=== PATIENT | female | born 1955 | race Caucasian/White ===

== ENCOUNTER → 2016-04-02 | Outpatient (CLI) | payer OTHER ==
--- NOTE | 2016-04-02 11:27 | MA ---
Screening Digital Mammogram Clinical Indications: Routine screening. Technique: Standard cephalocaudal and mediolateral oblique projections are obtained. This examinati on is processed by the [employer] computer aided detection system. Comparison: March 08, 2015; March 07, 2014; and studies dating back to September 08, 2007. Breast density: B; There are scattered areas of fibroglandular density. Findings: CAD was reviewed. No suspicious findings are identified. There are no new masses, new clus ters of microcalcifications, or significant axillary lymphadenopathy. Impression: Negative mammogram. BI-RADS 1. Recommendation: Routine screening is recommended in one year. [facility] will send a result letter to the patient. Negative mammography should not preclude additional workup of a clinically suspicious finding. The patient's information is entered into a reminder system with a target due date for her next mammo gram.
== END ==
LOC: BMCIMAGING 10:45
DX: Z12.31 Encounter for screening mammogram for malignant neoplasm of breast (principal)
CPT/HCPCS: G0202

== ENCOUNTER → 2017-05-04 | Outpatient (CLI) | payer OTHER | LOC: BMCIMAGING 08:56 | PROVIDERS: ATTEND Internal Medicine | DX: Z12.31 Encounter for screening mammogram for malignant neoplasm of breast (principal) ==

== ENCOUNTER → 2017-07-14 | Outpatient (CLI) | payer OTHER | LOC: FIMAGING 08:30 | PROVIDERS: ATTEND Physician Assistant | DX: M17.12 Unilateral primary osteoarthritis, left knee (principal) ==

== ENCOUNTER 2017-12-14 22:35 | Inpatient (IN) | payer OTHER ==
[2017-12-14] MEDS ORDERED: NS 1,000 ML IV ONE (22:41)
[2017-12-14] MEDS ORDERED: HYOSCYAMINE SULFATE 0.125 MG TAB PO ONE (22:41)
[2017-12-14] MEDS ORDERED: LIDOCAINE 2% VISCOUS 15 ML UDCUP PO ONE (22:41)
[2017-12-14] MEDS ORDERED: MAG HYDROX/AL HYDROX/SIMETH 30 ML UDCUP PO ONE (22:41)
--- NOTE | 2017-12-14 22:43 | EDPHY ---
H & P Time Seen by Provider: 12/14/17 22:41 HPI/ROS: HPI CHIEF COMPLAINT: Abdominal pain HISTORY OF PRESENT ILLNESS: This is a 62-year-old female she presents emergency room from private residence by EMS for abdominal pain. Patient reports that she has crampy diffuse abdominal pain for the past 8 hr. And most focally tender in the mid abdomen. Nausea present but no vomiting. Denies any diarrhea. Denies chest pain or shortness of breath. States that every few months she gets like this. She has been having abdominal pain for the past 8 hr. Denies fever. Past Medical History: Significant past medical history for chronic abdominal pain, anxiety, GERD, depression, previous SBO Past Surgical History: Cholecystectomy, ex lap, previous SBO, lysis of adhesions Social History: Denies drugs alcohol tobacco. Family History: Noncontributory. ROS REVIEW OF SYSTEMS: 10 Systems were reviewed and negative with the exception of the elements mentioned in the history of present illness. Exam Constitutional triage nursing summary reviewed, vital signs reviewed, awake/ alert. Vital signs stable. Nontoxic. Eyes normal conjunctivae and sclera, EOMI, PERRLA. HENT normal inspection, atraumatic, moist mucus membranes, no epistaxis, neck supple/ no meningismus, no raccoon eyes. Respiratory clear to auscultation bilaterally, normal breath sounds, no respiratory distress, no wheezing. Cardiovascular rate normal, regular rhythm, no murmur, no edema, distal pulses normal. Gastrointestinal soft, non-tender, no rebound, no guarding, normal bowel sounds, no distension, no pulsatile mass. Genitourinary no CVA tenderness. Musculoskeletal no midline vertebral tenderness, full range of motion, no calf swelling, no tenderness of extremities, no meningismus, good pulses, neurovascularly intact. Skin pink, warm, & dry, no rash, skin atraumatic. Neurologic awake, alert and oriented x 3, AAOx3, moves all 4 extremities equally, motor intact, sensory intact, CN II-XII intact, normal cerebellar, normal vision, normal speech. Psychiatric normal mood/affect. Heme/Lymph/Immune no lymphadenopathy. Differential diagnosis includes but is not limited to and in no particular order : Bowel obstruction, appendicitis, gallbladder disease, diverticulitis, colitis , enteritis, perforated viscus, gastritis, GERD, esophagitis, urinary tract infection, pyelonephritis, kidney stones Medical Decision Making: Plan for this patient IV establishment with IV fluid bolus, KUB, abdominal lab work, GI cocktail to see if this improves her mid abdomen epigastric pain. Rule out SBO as history of SBO. Re-evaluation: KUB reviewed. Does show an abnormal gait air his bowel pattern with air-fluid levels in the right-sided abdomen. Given this will proceed with CT scan abdomen pelvis with IV contrast. CT scan abdomen pelvis with IV contrast called to me by Dr. Helton, shows small bowel obstruction. 2356: Will call general surgery. 1211: Will place NG tube. I spoke with Dr. Montes, who woule like Dr. Villagran to see the patient. Spoke with Dr. Villagran who will see the patient, but would like patient admitted to Hospalist Service. 1220AM: Spoke with Dr. Canales, Agrees to admit. Source: Patient, EMS Constitutional: Initial Vital Signs Temperature (C) 36.8 C 12/14/17 22:35 Heart Rate 65 12/14/17 22:35 Respiratory Rate 20 12/14/17 22:35 Blood Pressure 172/77 H 12/14/17 22:35 O2 Sat (%) 96 12/14/17 22:35 O2 Delivery Mode Nasal Cannula O2 (L/minute) 2 Allergies/Adverse Reactions: No Known Allergies Allergy (Verified 10/13/12 16:51) Home Medications: Medication Instructions Recorded lamoTRIgine [LamICTAL 100 MG (*)] 100 mg PO DAILY 11/17/11 Albuterol [Proventil Inhaler HFA 1 - 2 puffs IH Q4 PRN 10/13/12 (*)] ESCITALOPRAM OXALATE [LEXAPRO] 20 mg PO DAILY 10/13/12 Ondansetron Odt [Zofran Odt 4 mg 4 mg PO Q4 PRN 10/13/12 (*)] Sucralfate [Carafate 1 GM (*)] 1 gm PO ACHS PRN 12/14/17 Buprenorphine HCl 8 mg SL DAILY 12/15/17 Cholecalciferol Vit D3 [Vitamin D3 1,000 units PO DAILY 12/15/17 (*)] Cyanocobalamin [Vitamin B12 (*)] 1,000 mcg PO DAILY 12/15/17 Herbals/Supplements -Info Only 1 ea PO DAILY 12/15/17 Levothyroxine [Synthroid 88 mcg 88 mcg PO DAILY06 12/15/17 (*)] [place]-3 Fatty Acids [Fish Oil 1000 1,000 mg PO DAILY 12/15/17 mg (*)] Medical Decision Making - Data Points Laboratory Results: Laboratory Results 12/15/17 05:00 12/15/17 05:00 Medications Given: Discontinued Medications Acetaminophen (Tylenol) 650 mg PO Q4HRS PRN PRN Reason: Pain, Mild/Fever, Can Take PO Stop: 06/13/18 00:18 Last Admin: 12/16/17 07:03 Dose: 650 mg Al Hydroxide/Mg Hydroxide (Maalox Susp) 30 ml PO ONCE ONE Stop: 12/14/17 22:42 Last Admin: 12/14/17 23:11 Dose: 30 ml Benzocaine (Hurricaine [place]) 1 each MM EDNOW ONE Stop: 12/15/17 00:14 Last Admin: 12/15/17 00:14 Dose: 1 each Hydromorphone HCl (Dilaudid) 1 mg IVP EDNOW ONE Stop: 12/15/17 00:04 Last Admin: 12/15/17 00:12 Dose: 1 mg Hyoscyamine Sulfate (Levsin, Hyomax-Sl) 0.25 mg PO ONCE ONE Stop: 12/14/17 22:42 Last Admin: 12/14/17 23:10 Dose: 0.25 mg Sodium Chloride (Ns) 1,000 mls @ 0 mls/hr IV EDNOW ONE; Wide Open PRN Reason: Protocol Stop: 12/14/17 22:42 Last Admin: 12/14/17 23:12 Dose: 1,000 mls Dextrose/Sodium Chloride (D5w 1/2 Ns) 1,000 mls @ 100 mls/hr IV CONT JUSTIN Stop: 06/13/18 00:29 Last Admin: 12/15/17 18:06 Dose: 1,000 mls Lidocaine (Lidocaine 2% Viscous) 15 ml PO ONCE ONE Stop: 12/14/17 22:42 Last Admin: 12/14/17 23:11 Dose: 15 ml Lorazepam (Ativan Injection) 1 mg IVP EDNOW ONE Stop: 12/15/17 00:40 Last Admin: 12/15/17 00:40 Dose: 1 mg Miscellaneous Medication (Buprenorphine Hcl [Buprenorphine Hcl]) 8 mg SL DAILY JUSTIN Stop: 06/14/18 08:59 Last Admin: 12/16/17 11:18 Dose: Not Given Point of Care Test Results: Chemistry 12/14/17 22:51 POC Troponin I 0.00 ng/mL ng/mL (0.00-0.08) Departure - Departure Disposition: [facility] Inpatient Acute Clinical Impression: SBO (small bowel obstruction) Condition: Fair
[2017-12-14 23:01] LABS: PLATELET COUNT 251 10^3/uL (150-400)
[2017-12-14] MEDS ORDERED: IOPAMIDOL (ISOVUE-300) 100 ML BTL ONE (23:04)
[2017-12-14 23:25] LABS: INR 0.93 (0.83-1.16); PROTIME(PATIENT) 12.7 SEC (12.0-15.0)
[2017-12-15] MEDS ORDERED: HYDROmorphONE/DILAUDID 2 MG/ML INJ IVP ONE (00:03)
[2017-12-15] MEDS ORDERED: BENZOCAINE UNIT DOSE SPRAY HURRICAINE MM ONE ×2 (00:07→00:13)
[2017-12-15] MEDS ORDERED: ONDANSETRON DISINTEGRATING 4 MG TAB PO PRN (00:19)
[2017-12-15] MEDS ORDERED: ACETAMINOPHEN 325 MG TAB PO PRN (00:19)
[2017-12-15] MEDS ORDERED: ONDANSETRON 4 MG/2 ML VIAL IVP PRN (00:19)
[2017-12-15] MEDS ORDERED: LORazepam 2 MG/ML INJ ONE (00:26)
[2017-12-15] MEDS ORDERED: LORazepam 2 MG/ML INJ IVP ONE (00:39)
--- NOTE | 2017-12-15 01:11 | PDGENHP ---
History and Physical - Chief Complaint Abdominal pain - History of Present Illness 62 yo F w/ hx of hypothyroid, depression, and prior SBO requiring ex-lap presents with abdominal pain. Patient developed severe abdominal pain around 2 PM today. Her last BM was this morning. She thinks she passed some gas around 2 PM but none since. She has had minimal vomiting. She had a serious SBO in 2013 requiring ex-lap at that time. Since, she had not had any serious episodes requiring hospitalization. Case discussed with ED physician Dr. Sotelo; records reviewed in EMR. History Information - Allergies/Home Medication List Allergies/Adverse Reactions: No Known Allergies Allergy (Verified 10/13/12 16:51) Home Medications: lamoTRIgine [LamICTAL 100 MG (RX)] 100 mg PO DAILY 11/17/11 [Last Taken 10/13/12 ] Albuterol [Proventil Inhaler] 1 - 2 puffs IH Q4 PRN 10/13/12 [Last Taken ] BUPRENORPHINE/NALOXONE 8mg/2mg [Suboxone] 1 tab SL DAILY 10/13/12 [Last Taken ] ESCITALOPRAM OXALATE [Lexapro] 20 mg PO DAILY 10/13/12 [Last Taken 10/13/12] Levothyroxine [Synthroid 100 mcg (RX)] 100 mcg PO DAILY06 10/13/12 [Last Taken 10/13/12] Ondansetron Odt [Zofran Odt 4 mg (RX)] 4 mg PO Q4 PRN 10/13/12 [Last Taken 10/13] Carafate 1 GM (*) 12/14/17 [Last Taken Unknown] I have personally reviewed and updated: family history, medical history - Past Medical History Additional medical history: Depression. Hypothyroid. SBO - Surgical History Additional surgical history: Ex-lap 2012 for SBO - Family History Positive for: cancer Review of Systems Review of Systems: ROS: 10pt was reviewed & negative except for what was stated in HPI & below Physical Exam Physical Exam: Temp Pulse Resp BP Pulse Ox 36.8 C 69 18 145/81 H 95 12/14/17 22:35 12/15/17 00:40 12/15/17 00:40 12/15/17 00:40 12/15/17 00:40 Constitutional: appears nourished, uncomfortable Eyes: PERRL, EOMI Ears, Nose, Mouth, Throat: moist mucous membranes, no oral mucosal ulcers Cardiovascular: regular rate and rhythym, no murmur, rub, or gallop Respiratory: no respiratory distress, clear to auscultation Gastrointestinal: tenderness (Diffuse), No guarding, No rebound, No distension Skin: warm, normal color Musculoskeletal: full muscle strength, no muscle tenderness Neurologic: AAOx3, CN II-XII Intact Psychiatric: interacting appropriately, not anxious Lab Data & Imaging Review 12/14/17 22:30 12/14/17 22:30 WBC 10.45 10^3/uL (3.80-9.50) H 12/14/17 22: RBC 4.63 10^6/uL (4.18-5.33) 12/14/17 22: Hgb 15.1 g/dL (12.6-16.3) 12/14/17 22: Hct 42.2 % (38.0-47.0) 12/14/17 22: MCV 91.1 fL (81.5-99.8) 12/14/17 22:30 MCH 32.6 pg (27.9-34.1) 12/14/17 22: MCHC 35.8 g/dL (32.4-36.7) 12/14/17 22: RDW 11.3 % (11.5-15.2) L 12/14/17 22:30 Plt Count 251 10^3/uL (150-400) 12/14/17 22: MPV 9.7 fL (8.7-11.7) 12/14/17 22: Neut % (Auto) 68.0 % (39.3-74.2) 12/14/17 22: Lymph % (Auto) 24.5 % (15.0-45.0) 12/14/17 22: Cassia % (Auto) 6.5 % (4.5-13.0) 12/14/17 22: Eos % (Auto) 0.5 % (0.6-7.6) L 12/14/17 22:30 Baso % (Auto) 0.2 % (0.3-1.7) L 12/14/17 22:30 Nucleat RBC Rel Count 0.0 % (0.0-0.2) 12/14/17 22:30 Absolute Neuts (auto) 7.11 10^3/uL (1.70-6.50) H 12/14/17 22:30 Absolute Lymphs (auto) 2.56 10^3/uL (1.00-3.00) 12/14/17 22:30 Absolute Monos (auto) 0.68 10^3/uL (0.30-0.80) 12/14/17 22:30 Absolute Eos (auto) 0.05 10^3/uL (0.03-0.40) 12/14/17 22:30 Absolute Basos (auto) 0.02 10^3/uL (0.02-0.10) 12/14/17:30 Absolute Nucleated RBC 0.00 10^3/uL (0-0.01) 12/14/17 22:30 Immature Gran % 0.3 % (0.0-1.1) 12/14/17 22:30 Immature Gran # 0.03 10^3/uL (0.00-0.10) 12/14/17 22:30 PT 12.7 SEC (12.0-15.0) 12/14/17 22:30 INR 0.93 (0.83-1.16) 12/14/17 22:30 APTT 26.2 SEC (23.0-38.0) 12/14/17 22:30 Sodium 138 mEq/L (135-145) 12/14/17 22:30 Potassium 4.0 mEq/L (3.3-5.0) 12/14/17 22:30 Chloride 102 mEq/L (97-110) 12/14/17 22:30 Carbon Dioxide 25 mEq/l (22-31) 12/14/17 22:30 Anion Gap 11 mEq/L (8-16) 12/14/17 22:30 BUN 16 mg/dL (7-23) 12/14/17 22:30 Creatinine 0.6 mg/dL (0.6-1.0) 12/14/17 22:30 Estimated GFR > 60 12/14/17 22:30 Glucose 119 mg/dL (70-100) H 12/14/17 22:30 Calcium 9.8 mg/dL (8.5-10.4) 12/14/17 22:30 Total Bilirubin 0.5 mg/dL (0.1-1.4) 12/14/17 22:30 Conjugated Bilirubin 0.2 mg/dL (0.0-0.5) 12/14/17 22:30 Unconjugated Bilirubin 0.3 mg/dL (0.0-1.1) 12/14/17 22:30 AST 34 IU/L (14-46) 12/14/17 22:30 ALT 36 IU/L (9-52) 12/14/17 22:30 Alkaline Phosphatase 94 IU/L (38-126) 12/14/17 22:30 POC Troponin I 0.00 ng/mL (0.00-0.08) 12/14/17 22:51 Total Protein 7.3 g/dL (6.3-8.2) 12/14/17 22:30 Albumin 4.3 g/dL (3.5-5.0) 12/14/17 22:30 Lipase 196 IU/L (23-300) 12/14/17 22:30 Imaging Review: Imaging Impressions Abdomen CT 12/14/17 22:41 Impression: 1. Findings consistent with small bowel obstruction are noted with slightly more prominent small bowel abnormality compared to the 2013 study. 2. See above report for additional findings. Results called and discussed with Rk Moore MD on 12/14/2017 at 23:55. Abdomen X-Ray 12/14/17 22:44 Impression: Findings suggestive of small bowel obstruction are noted. This could be related to constipation. Assessment & Plan Assessment: 62 yo F presents with SBO. Plan: 1. Acute SBO - With symptoms present x1 day; XR (personally interpreted) and CT both consistent with SBO. She had a prior SBO bout in 2012 requiring surgery. - Admit for observation - Maintain NPO - mIVF, NGT placed - Pain control, anti-emetics PRN - Repeat XR in the AM - Surgical service consulted, appreciate assistance 2. Hx depression - On Lamictal as outpatient 3. Hx chronic opiate use - Now on Suboxone. - Continue Suboxone pending med reconciliation 4. Hypothyroid - Continue LTX Diet - NPO Code - Full Ppx - SCDs Dispo - Admit under observation status
[2017-12-15] MEDS: D5W 1/2 NS 1,000 ML IV SCH ×2 (03:28→18:06)
[2017-12-15 05:11] LABS: PLATELET COUNT 229 10^3/uL (150-400)
--- NOTE | 2017-12-15 09:50 | SOAPPROG ---
SOAP Progress Note Assessment/Plan: Assessment: Feels out of it passing small amount of gas 2012 ex lap no obstruction found gastrograffin challenge test Plan: 12/15/17 09:49 Objective: Vital Signs Temp Pulse Resp BP Pulse Ox 36.8 C 66 16 131/67 H 96 12/15/17 09:05 12/15/17 09:05 12/15/17 09:05 12/15/17 09:05 12/15/17 09:05 Laboratory Results 12/15/17 05:00 12/15/17 05:00 12/14/17 12/15/17 12/16/17 05:59 05:59 05:59 Intake Total 1000 Output Total 200 400 Balance 800 -400 PT 12.7 SEC (12.0-15.0) 12/14/17 22:30 INR 0.93 (0.83-1.16) 12/14/17 22:30 ICD10 Worksheet Patient Problems: Problems Problem Status Onset SBO (small bowel obstruction) Acute
--- NOTE | 2017-12-15 11:21 | GCON ---
DATE OF CONSULTATION: 12/15/2017 CHIEF COMPLAINT: Small bowel obstruction. HISTORY OF PRESENT ILLNESS: The patient is a 62-year-old woman who presented to the emergency room y esterday complaining of abdominal pain. An abdominal CT and x-ray were performed, which reveal evide nce of a small-bowel obstruction. Her last bowel movement was yesterday. At the time of consultatio n, she is passing a small amount of gas. She had an NG tube placed overnight with resolution of naus ea and vomiting. At this time, she does not report any sharp abdominal pain or discomfort, but she d oes report that she is "out of it." She does have a history of small bowel obstruction in 2012. She was taken the operating room by Dr. Brooks for an exploratory laparotomy at which time the bowel obstruction was not found. She did not require lysis of adhesions or bowel resection at that time. She has not had any issues with abdominal pain or bowel obstruction since that incident. She did hav e an x-ray performed this morning, 12/15/2017, which showed prominent fecal material through the colo n suggestive of severe constipation. The small bowel obstruction remains stable. She has not had an y other abdominal surgeries. PAST MEDICAL HISTORY: Depression, hypothyroidism, history of small bowel obstruction. PAST SURGICAL HISTORY: Cholecystectomy, exploratory laparotomy as mentioned above. FAMILY HISTORY: Significant for cancer. ALLERGIES: No known drug allergies. SOCIAL HISTORY: No tobacco, alcohol, or recreational drug use. REVIEW OF SYSTEMS: 10-point review of systems negative aside from HPI. PHYSICAL EXAMINATION: GENERAL: Well-developed, well-nourished woman in no acute distress. HEENT: Normocephalic, atraumatic. No hearing deficits. Pupils equal and round. No scleral icterus. Mucou s membranes dry. Left naris NG tube in place. RESPIRATORY: Supplemental oxygen in place. Clear to auscultation bilaterally. No increased work of breathing. CARDIOVASCULAR: No peripheral edema. R egular rate and rhythm. ABDOMEN: Diminished bowel sounds. Soft, nontender, softly distended. No r ebound or guarding. PSYCH: Mood and affect normal. NEURO: Grossly intact. SKIN: Warm and dry. Previous midline incision well healed. IMPRESSION/PLAN: A 62-year-old woman with a recurrent small bowel obstruction. She is passing gas a t this time and we hope that this self-resolves without surgical intervention. Continue n.p.o., naso gastric tube, and intravenous fluids. We have ordered for a Gastrografin challenge test to be performed, 100 cc of Gastrografin will be giv en mixed with 50 cc of water through the nasogastric tube. The nasogastric tube will be clamped for 8 hours, and then, a repeat abdominal x-ray will be performed. If the contrast moves through to the colon at the time of the x-ray or if the patient has a bowel movement during the time of the trial, t he nasogastric tube may be removed. If the patient becomes nauseous at any time during the trial, na sogastric tube will return to suction. We will follow up with the results of this test as it is both diagnostic and therapeutic. We will continue to follow patient through this hospital admission. Thank you hospitalist for managing comorbidities. The patient was additionally seen by Dr. Olivia bustamante. /[id number]/MODL
--- NOTE | 2017-12-15 12:00 | PDMN ---
Medical Necessity Medical necessity: MCG M210 intestinal obstruction: 2 days: SBO with NG placement CT shows sbo, anticipate > 2 MN ongoing med nec care, eval and tx.
--- NOTE | 2017-12-15 13:21 | ASMTCMCOM ---
CM Note CM Note Notes: Patient plan of care reviewed in interdisciplinary rounds. Being follow by surgery for treatment of possible SBO. Diagnostics to be done today. CM to follow for needs. Plan: TBD Date Signed: 12/15/2017 12:47 PM Electronically Signed By:Luiza Rand RN
--- NOTE | 2017-12-15 15:43 | HOSPPROG ---
Hospitalist Progress Note Assessment/Plan: #SBO: Cased discussed with Dr. Villagran. h/o reported SBO, but prior ex lap did not reveal obstruction -Gastrografin challenge. NGT in place. Lytes WNL, IVs, PRN opioids #Chronic medical conditions: depression/hypothyroidism. Resume home meds when taking PO #Diet: NPO #DVT ppx: Lovenox #Disp: requires inpatient admission for SBO, NGT, IVFs. Face-face, direct care with patient: 30 min bedside evaluating, reviewing labs imaging and d/w Dr. Villagran (8:45am-9:15) Subjective: no nausea after NG placed Objective: Vital Signs Temp Pulse Resp BP Pulse Ox 36.4 C 58 L 16 128/67 H 94 12/15/17 15:03 12/15/17 15:03 12/15/17 15:03 12/15/17 15:03 12/15/17 15:03 12/14/17 12/15/17 12/16/17 05:59 05:59 05:59 Output Total 200 Balance -200 PT 12.7 SEC (12.0-15.0) 12/14/17 22:30 INR 0.93 (0.83-1.16) 12/14/17 22:30 - Time Spent With Patient Time Spent with Patient: greater than 35 minutes Time Spent with Patient: Greater than 35 minutes spent on this patients care, greater than 50% of time spent counseling, educating, and coordinating care regarding the above mentioned plan. - Physical Exam Constitutional: other (tired) Eyes: PERRL Ears, Nose, Mouth, Throat: moist mucous membranes Cardiovascular: regular rate and rhythym Respiratory: no respiratory distress Gastrointestinal: distension, other (tinkling bowel sounds throughout), No tenderness Genitourinary: No cook in urethra Skin: warm Musculoskeletal: full muscle strength Neurologic: AAOx3, CN II-XII Intact Psychiatric: interacting appropriately ICD10 Worksheet Patient Problems: Problems Problem Status Onset SBO (small bowel obstruction) Acute
[2017-12-16 07:32] VITALS: BP 131/71
--- NOTE | 2017-12-16 08:40 | SOAPPROG ---
SOAP Progress Note Assessment/Plan: Assessment: 62 yo admitted for sbo. Passed gastrografin challenge test. Feels better. NO sbo on x ray start clears home soon will sign off, let me know if any questions or concerns S: Passing flatus and had bm. No nausea since ng tube removed Lying in bed, appears comfortable CTAB RRR BS present, much less distended than yesterday. Soft Plan: 12/16/17 08:38 Objective: Vital Signs Temp Pulse Resp BP Pulse Ox 37.1 C 57 L 14 131/71 H 90 L 12/16/17 07:30 12/16/17 07:30 12/16/17 07:30 12/16/17 07:30 12/16/17 07:30 12/15/17 12/16/17 12/17/17 05:59 05:59 05:59 Intake Total 1828 Output Total 400 Balance 1428 PT 12.7 SEC (12.0-15.0) 12/14/17 22:30 INR 0.93 (0.83-1.16) 12/14/17 22:30 ICD10 Worksheet Patient Problems: Problems Problem Status Onset SBO (small bowel obstruction) Acute
[2017-12-16] MEDS ORDERED: BUPRENORPHINE HCL 8 MG SL SCH (09:00)
--- NOTE | 2017-12-16 12:27 | ASDISCHSUM ---
Discharge Information Plan Status:Home with No Needs Medically Cleared to Leave:12/16/2017 Discharge Date:12/16/2017 CM D/C Disposition:Home, Routine, Self-Care ADT D/C Disposition:Home, Routine, Self-Care Projected Discharge Date:12/16/2017 Transportation at D/C:Family Discharge Delay Reason: Follow-Up Date:12/16/2017 Discharge Slot: Final Diagnosis: Placement Information Patient Contact Information Contact Name:JEFFY Relationship: Address:[phone] [place] City:[facility] Phone: State/Zip Code:[place] [address] Email: Financial Information Financial Class:HMO and PPO Plans Primary Plan Desc:[facility] CHO[facility] PLUS POS Primary Plan Number:[id number] Secondary Plan Desc: Secondary Plan Number: Assessment Information LACE LACE Length of stay for Answers: 2 days current admission Acuity / Level of Answers: Yes Care: Did the patient have an inpatient admission? Comorbidities - select Answers: Opioid dependence all that apply / Chronic pain Other Notes: GERD; Hypothyroid # of Emergency department Answers: 1-2 visits in the last 6 months Social determinants Answers: Mental health diagnosis (anxiety, depression, pers onality disorders, etc.) Score: 14 Date Signed: 12/16/2017 12:24 PM Electronically Signed By:ROMEO Albarran [facility] CM Progress Note CM Note CM Note Notes: Patient plan of care reviewed in interdisciplinary rounds. Being follow by surgery for treatment of possible SBO. Diagnostics to be done today. CM to follow for needs. Plan: TBD Date Signed: 12/15/2017 12:47 PM Electronically Signed By:Luiza Rand RN Case Management Discharge Plan Note Case Management Discharge Discharge Order Complete? Answers: Yes Patient to Obtain Answers: Independently Medications Transportation Arranged Answers: Family/Friends Discharge Comments Notes: Pt has been cleared by surgery and is discharging home today with her and no CM needs. Date Signed: 12/16/2017 12:26 PM Electronically Signed By:ROMEO Albarran Intervention Information
[2017-12-16] MEDS ORDERED: ENOXAPARIN 40 MG/0.4 ML SYR SC SCH (12:30)
--- NOTE | 2017-12-16 13:33 | GDS ---
DISCHARGE DIAGNOSES: 1. Small bowel obstruction. 2. Acute abdominal pain. 3. Hypothyroidism. 4. Depression. HISTORY OF PRESENT ILLNESS: 62-year-old female with history of hypothyroid, depression and prior ex-lap, presenting with abdominal pain, but having normal bowel movements. Some vomiting. She reports a SBO in 2012 requiring ex-lap. HOSPITAL COURSE BY PROBLEM: 1. SBO. CT here showed SBO. Dr. Villagran evaluated and states no prior SBO per surgical report. Underwent gastrogafin challenge. There is no small bowel on x- ray. She is tolerating clears. I told her to advance her diet slowly. 2. Hypothyroidism. Levothyroxine. DISPOSITION: Patient is stable for discharge home. She is advised to advance diet slowly. FOLLOWUP: Per primary care physician NEW MEDICATIONS: None. PHYSICAL EXAM: VITAL SIGNS: Temperature 37.1, blood pressure 131/71, heart rate in the 50s, respiration 14. She is 92% on room air. GENERAL: She is well appearing, tired, but no acute distress. HEENT: PERRLA. Moist mucous membranes. CV: Regular rate and rhythm. LUNGS: Clear. ABDOMEN: Soft, nontender, nondistended. Positive bowel sounds throughout. No pain. NEURO: 2 through 12 intact. PSYCH: Alert and oriented x3. Time spent on discharge: Greater than 30 minutes counseling patient on diet and followup precautions. /[id number]/MODL MTDD
== END 2017-12-16 12:32 | disposition home or self-care (01) | DRG 390 ==
LOC: EDUNIT# → F1N 12-15 02:10 → OBSVTOIN 12-15 11:15
PROVIDERS: ADMIT Student in an Organized Health Care Education/Training Program; ATTEND Student in an Organized Health Care Education/Training Program
DX: K56.609 Unspecified intestinal obstruction, unspecified as to partial versus complete obstruction (principal); E03.9 Hypothyroidism, unspecified; F32.9 Major depressive disorder, single episode, unspecified
CPT/HCPCS: 84484-PO; 96374; J1170; J2060; Q9967

== ENCOUNTER → 2018-02-02 | Outpatient (CLI) | payer OTHER | LOC: BMCIMAGING 08:23 | PROVIDERS: ATTEND Nurse Practitioner Adult Health | DX: Z13.820 Encounter for screening for osteoporosis (principal) ==

== ENCOUNTER → 2018-05-12 | Outpatient (CLI) | payer OTHER | LOC: BMCIMAGING 09:05 | PROVIDERS: ATTEND Nurse Practitioner Adult Health | DX: Z12.31 Encounter for screening mammogram for malignant neoplasm of breast (principal) ==